=== PATIENT | male | born 1990 | race Caucasian/White ===

== ENCOUNTER 2017-04-15 23:38 | Emergency (ER) | payer OTHER ==
--- NOTE | 2017-04-15 23:50 | ERPHSYRPT ---
- History of Present Illness Time Seen by Provider: 04/15/17 23:46 Source: patient, EMS Exam Limitations: no limitations Physician History: pt fell from mechanical bull and hit chin on chest forcibly , no LOC, no head injury or neuro symptoms; no blood thinners, no abd pain , pain with deep breath only Occurred: just prior to arrival Reason for Fall: fell from height Injuries/Pain Location: neck, chest Loss of Consciousness: no loss of consciousness Quality: sharpness Severity of Pain-Max: moderate Severity of Pain-Current: moderate Associated Symptoms (Fall): back pain, neck pain Allergies/Adverse Reactions: Sulfa (Sulfonamide Antibiotics) Allergy (Verified 04/15/17 23:53) Swelling of Tongue and Lips Home Medications: No Home Meds 1 ea UD 04/15/17 [History] - Review of Systems Constitutional: No Fever, No Chills Eyes: No Symptoms Ears, Nose, & Throat: No Symptoms Respiratory: No Cough, No Dyspnea Cardiac: No Chest Pain, No Edema, No Syncope Abdominal/Gastrointestinal: No Abdominal Pain, No Nausea, No Vomiting, No Diarrhea Genitourinary Symptoms: No Dysuria Musculoskeletal: Back Pain, Neck Pain Skin: No Rash Neurological: No Dizziness, No Focal Weakness, No Sensory Changes Psychological: No Symptoms Endocrine: No Symptoms All Other Systems: Reviewed and Negative - Past Medical History Pertinent Past Medical History: No - Nursing Vital Signs Nursing Vital Signs: Initial Vital Signs Temperature 97.5 F Temperature Source Oral Pulse Rate 94 Respiratory Rate 18 Blood Pressure [] 127/76 Pain Intensity 9 - Giancarlo Coma Score Best Eye Response (Giancarlo): (4) open spontaneously Best Verbal Response (Lindley): (5) oriented Best Motor Response (Lindley): (6) obeys commands [place] Total: 15 - Physical Exam General Appearance: mild distress, alert Head Injury: no evidence of injury Eye Exam: PERRL/EOMI ENT Exam: airway nml Neck Exam: trachea midline, normal inspection, muscle spasm, pain on movement of neck, tenderness, No focal neuro deficit Respiratory/Chest Exam: normal breath sounds, No chest tenderness, No respiratory distress, No decreased breath sounds, No accessory muscle use, No subcutaneous emphysema, No rib tenderness, No paradoxical movements Cardiovascular Exam: normal heart sounds, regular rate/rhythm, normal peripheral pulses Gastrointestinal Exam: soft, No tenderness, No distention, No guarding, No ecchymosis Back Exam: normal inspection, vertebral tenderness, muscle spasm, point tenderness Extremity Exam: normal inspection, normal range of motion, pelvis stable, No deformities Neurologic Exam: alert, oriented x 3, cooperative, sensation nml, No motor deficits Skin Exam: normal color, warm, dry Oxygen Delivery: Room Air - Course Nursing assessment & vital signs reviewed: Yes - CT Exams Cervical Spine CT Interpretation: Tele-radiologist Report, No Fracture, No Subluxation Ordered Tests: Active Orders 24 hr Category Date Time Status CERVICAL SPINE WO CONTRAST [CT] Stat Exams 04/15/17 23:45 Taken CHEST 2 VIEWS (PA AND LAT) Stat Exams 04/15/17 23:44 Taken THORACIC SPINE W/O CONTRAST [CT] Stat Exams 04/15/17 23:45 Taken Medication Summary Discontinued Medications Generic Name Dose Route Start Last Admin Trade Name Yuridia PRN Reason Stop Dose Admin Orphenadrine Citrate 60 mg 04/16/17 00:50 04/16/17 00:58 Norflex 60 Mg/2 Ml IM 04/16/17 00:51 60 mg STAT ONE Administration Orphenadrine Citrate Confirm 04/16/17 00:57 Norflex 60 Mg/2 Ml Administered 04/16/17 00:58 Dose 60 mg .ROUTE .STK-MED ONE - Progress Progress: improved, re-examined Progress Note: 04/16/17 01:50 pt decl;emily pain meds for home; advised of limits of testing perfomred and that undetected pathology may still be evolving and pt will f/u PCP; Counseled pt/family regarding: diagnosis, need for follow-up, rad results - Departure Time of Disposition: 01:51 Departure Disposition: Home Clinical Impression: cervical spine strain, thoracic strain/contusion Condition: Good Critical Care Time: No Instructions: Cervical Strain, Concussion, Rib Contusion, Contusion Additional Instructions: although the Cat scans did not show bone injury there can still be ligament injury to followup with MRI with your Dr if symptoms continue; also although there are no signs of concussion you had a head impact and precautions are advised;
[2017-04-16] MEDS ORDERED: Norflex 60 MG/2 ML IM ONE (00:50)
[2017-04-16] MEDS ORDERED: Norflex 60 MG/2 ML ONE (00:57)
[2017-04-16 02:10] VITALS: BP 126/78; PULSE 78; O2SAT 97
--- NOTE | 2017-04-16 08:32 | XRAY ---
Indication: Chest pain following fall off mechanical bull. Comparison: None PA/lateral chest demonstrates normal heart, lungs, and bony thorax with a few incidental calcified granulomas.
--- NOTE | 2017-04-16 08:34 | XRAY ---
Indication: Pain following fall off mechanical bull. Multiple contiguous axial images obtained through the cervical spine. Sagittal and coronal reformatted images obtained. Comparison: None Axial images negative for acute fracture, suspicious bony lesions, or spinal canal stenosis. Sagittal and coronal reformatted images demonstrates normal alignment with disc spaces preserved. No acute compression fracture, subluxation, or jumped facet. Normal-appearing craniocervical junction. Minimal mucosal thickening of the visualized maxillary sinuses. Remaining noncontrasted soft tissues including base of the brain and lung apices are unremarkable. Impression: Negative CT cervical spine without contrast exam. Minimal paranasal sinus disease. Comment: Preliminary interpretation was made by [facility]. No discrepancy. CTDI 94.07
--- NOTE | 2017-04-16 08:36 | XRAY ---
Indication: Pain following fall off mechanical bull. Multiple contiguous axial images obtained through the thoracic spine. Sagittal and coronal reformatted images obtained. Comparison: None Axial images negative for acute fracture, suspicious bony lesions, or spinal canal stenosis. Sagittal and coronal reformatted images demonstrates normal alignment with disc spaces preserved. No acute compression fracture or subluxation. Visualized noncontrasted soft tissues demonstrates mediastinal/hilar calcified nodes. Impression: Negative CT thoracic spine without contrast exam. Evidence for old granulomatous disease. Comment: Preliminary interpretation was made by [facility]. No discrepancy. CTDI 126.27
== END 2017-04-16 02:10 | disposition home or self-care (01) ==
LOC: ED 23:38
DX: S16.1XXA Strain of muscle, fascia and tendon at neck level, initial encounter (principal); W17.89XA Other fall from one level to another, initial encounter; S29.012A Strain of muscle and tendon of back wall of thorax, initial encounter; S20.229A Contusion of unspecified back wall of thorax, initial encounter; M54.2 Cervicalgia; R07.9 Chest pain, unspecified
CPT/HCPCS: 71020; 72125; 72128; 96372; 99284; J2360